=== PATIENT | male | born 1945 | race Caucasian/White ===

== ENCOUNTER → 2024-01-21 00:31 | Outpatient (CLI) | payer MEDICARE, SELFPAY ==
[2024-01-21 11:19] LABS: Abs Immature Grans 0.05 10^3/uL (0.0-0.06); Absolute Basophil Count 0.03 10^3/uL (0.0-0.2); Absolute Eosinophil Count 0.47 10^3/uL (0.0-0.7); Absolute Lymphocyte Count 1.75 10^3/uL (1.2-3.4); Absolute Monocyte Count 0.98 10^3/uL (0.1-0.8); Absolute Neutrophil Count 5.73 10^3/uL (1.2-6.7); Basophils % 0.3; Eosinophils % 5.2; HCT 40.6 % (40.0-50.0); HGB 13.4 g/dL (13.5-17.5); Immature Grans % 0.6; Lymphocytes % 19.4; MCH 33.1 pg (27.0-33.0); MCV 100 fL (80-95); MPV 8.7 fL (8.0-11.0); Monocytes % 10.9; Neutrophils % 63.6; Platelet Count 332 10^3/uL (130-400); RBC 4.05 10^6/uL (4.36-5.78); RDW 12.7 % (11.8-14.1); RDW-SD 46.8 fL; WBC 9.01 10^3/uL (4.4-10.8)
[2024-01-21 12:01] LABS: ALT 27 U/L (16-63); AST 36 U/L (15-37); Albumin 3.9 g/dL (3.4-5.0); Alkaline Phosphatase 162 U/L (46-116); Anion Gap 5.7 mmol/L (3-11); BUN 15 mg/dL (7-18); Bilirubin, Total 0.4 mg/dL (0.2-1.0); CO2 30.3 mmol/L (21.0-32.0); Calcium 9.4 mg/dL (8.5-10.1); Chloride 102 mmol/L (98-107); Estimated GFR 76.08 (mL/min/1.73m2); FREE T4 0.79 ng/dL (0.76-1.46); Glucose 94 mg/dL (74-106); LDH 305 U/L (85-227); Potassium 4.6 mmol/L (3.5-5.1); Sodium 138 mmol/L (136-145); TSH 3.52 uIU/Ml (0.36-3.74); Total Protein 7.4 g/dL (6.4-8.2)
[2024-01-21] MEDS: Gadoterate meglumine 20 ML SYRINGE IVP (13:13)
[2024-01-21] MEDS: Normal Saline Flush 10 ML SYR IVP (13:14)
--- NOTE | 2024-01-21 13:30 | DI.MRI_ITS ---
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 CONTRAST MATERIAL: IV Contrast: 13 ML of Dotarem contrast administered. MR SPINE ADULT from 05/06/2023 MR SPINE ADULT from 08/12/2023 FINDINGS: BONES: Vertebral body heights are maintained. Intervertebral disc spaces are normal. Alignment is nor mal. There are degenerative endplate signal changes seen at C6-C7. There again seen post laminectomy changes from C2 through C5. CERVICAL CORD: Craniovertebral junction is unremarkable. The cervical cord is normal size and signal intensity. No lesion is present. SOFT TISSUES: The previously seen fluid collection in the postsurgical bed posteriorly has nearly com pletely resolved. There does appear to be a tiny residual very thin fluid collection present. ENHANCEMENT: There is persistent very mild enhancement at the anterior lateral/right aspect of the sp inal cord at C3-C4. No new enhancing lesions are identified. C2-3: No disc herniation or bulge is identified. No significant central spinal canal or neural forami nal stenosis. C3-4: No disc herniation or bulge is identified. No significant central spinal canal or neural forami nal stenosis C4-5: No disc herniation or bulge is identified. No significant central spinal canal or neural forami nal stenosis C5-6: No disc herniation or bulge is identified. No significant central spinal canal or neural forami nal stenosis C6-7: There is again seen prominence of the osteophyte disc complex causing narrowing of the central spinal canal. The AP diameter is 6 mm. There is resultant flattening of the anterior aspect of the sp inal cord. There is normal signal in the spinal cord. Bilateral neural foraminal stenosis is present at this level. C7-T1: No disc herniation or bulge is identified. No significant central spinal canal or neural valentino inal stenosis IMPRESSION: 1. Stable mild enhancement at the anterior and right aspect of the spinal cord at C3-C4. No new enhan cing lesions are seen. 2. Stable central spinal canal and neural foraminal stenosis at C6-C7 due to the prominent osteophyte disc complex. 3. Near complete resolution of the fluid collection previously seen in the postsurgical bed status po st C2 through C5 laminectomy. DATA REPOSITORY:
== END ==
PROVIDERS: Nurse Practitioner; PCP Family Medicine; Visit Provider Neurological Surgery
DX: Z79.899 Other long term (current) drug therapy (principal); C43.4 Malignant melanoma of scalp and neck
CPT/HCPCS: 80053; 72156; 83615; 84439; 84443; 85025

== ENCOUNTER → 2024-01-25 03:09 | Outpatient (CLI) | payer MEDICARE, SELFPAY ==
--- NOTE | 2024-01-25 | DI.MRI_ITS ---
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 TECHNIQUE: Multiplanar multisequence MRI of the brain was performed. CONTRAST MATERIAL: IV Contrast: 13 ML of Dotarem contrast administered. FINDINGS: VENTRICLES AND EXTRA AXIAL SPACES: Normal in size and morphology for the patient's age. HEMORRHAGE: None. CEREBRAL PARENCHYMA: No focus of restricted diffusion to suggest acute infarct. Mild atrophy. Scatt ered white matter foci consistent with microvascular changes. No space-occupying lesion identified. MIDLINE SHIFT: None. BRAINSTEM/CEREBELLUM: Normal. CALVARIUM: Normal. ENHANCEMENT: No suspicious enhancement identified. VISUALIZED PARANASAL SINUSES/MASTOIDS: Small amount of mucous retention posterior left sphenoid sinus . Mild ethmoid mucosal thickening. Orbits: Unremarkable. Pituitary: Normal. Vasculature: Normal flow voids. IMPRESSION: No evidence of metastatic disease. DATA REPOSITORY:
[2024-01-25] MEDS: Normal Saline Flush 10 ML SYR IVP (10:11)
[2024-01-25] MEDS: Gadoterate meglumine 20 ML SYRINGE 13 ML IVP (10:12)
== END ==
PROVIDERS: PCP Family Medicine; Visit Provider Internal Medicine Hospice and Palliative Medicine
DX: C43.4 Malignant melanoma of scalp and neck (principal); G95.89 Other specified diseases of spinal cord
CPT/HCPCS: 70553

== ENCOUNTER → 2024-04-21 00:14 | Outpatient (CLI) | payer MEDICARE, SELFPAY ==
--- NOTE | 2024-04-21 | DI.MRI_ITS ---
Exam(s) MR ABDOMEN WO/W EXAM: MR ABDOMEN WO/W CLINICAL HISTORY: Metastases to liver, C78.7; secondary malignancy of soft tissue, C79.89 TECHNIQUE: Multiplanar multisequence MRI of the Abdomen was performed. CONTRAST MATERIAL: IV Contrast: 13 mL of Dotarem contrast administered. FINDINGS: Exam limited by motion. Liver: 2.8 centimeter by 3.4 centimeter high T1 signal lesion in the superior liver. Smaller high T1 signal lesion seen more laterally measuring 13 millimeters. Other smaller lesion seen in the inferi or right lobe. Pancreas: 3 centimeter mass seen near head of pancreas. Gallbladder and Bile Ducts: No biliary dilatation. Status post cholecystectomy. Adrenals: Unremarkable 6 centimeter mixed signal lesion of the left adrenal. There is significant hi gh signal on T1 weighted images small nodule left adrenal gland. Kidneys: No evidence of hydronephrosis. Small high T1 low T2 signal nodule at the posterior border o f left kidney seen to represent a partially calcified lesion on PET CT. Additional tiny nodule high T1 signal seen at the lower pole of the left kidney. Spleen: Unremarkable. Aorta: Unremarkable. Soft Tissues: 2.5 centimeter mass in the left paraspinal tissues at the L5 level. Bone: Abnormal expansile high signal lesion seen in right anterior rib at the upper images. Lymph Nodes: Unremarkable no enlarged lymph nodes are visible. Lung bases: No effusions. No ascites. No abnormal bowel distension. IMPRESSION: Limited exam due to motion. Metastatic lesions seen in right anterior rib, liver, both adrenal glands. There is a mass near the head of the pancreas of uncertain origin. Small lesions are seen on the left kidney which show high T1 signal in could also represent metastases. Mass in the posterior soft tissues at the right L5 level. DATA REPOSITORY:
[2024-04-21] MEDS: Normal Saline - Diluent 50 ML VIAL 20 ML IJ (10:43)
[2024-04-21] MEDS: Gadoterate meglumine 20 ML VIAL 13 ML IVP (10:43)
== END ==
PROVIDERS: PCP Family Medicine
DX: C79.89 Secondary malignant neoplasm of other specified sites (principal); C78.7 Secondary malignant neoplasm of liver and intrahepatic bile duct
CPT/HCPCS: 74183

== ENCOUNTER 2024-07-28 00:32 | Outpatient (CLI) | payer MEDICARE, SELFPAY ==
--- NOTE | 2024-07-28 | DI.MRI_ITS ---
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 CONTRAST MATERIAL: IV Contrast: 12 ML of Dotarem contrast administered. COMPARISON: MR MR CERVICAL SPINE WO/W from 01/21/2024 FINDINGS: BONES: Vertebral body heights are maintained. Intervertebral disc spaces are normal. There is straigh tening of the normal cervical lordosis. There is again seen a C2 through C5 laminectomy. Endplate o steophytes are seen at multiple levels of the cervical spine. Endplate degenerative signal changes a re seen at multiple levels of the cervical spine particularly at C6-C7. Bone marrow signal intensity is within normal limits. CERVICAL CORD: Craniovertebral junction is unremarkable. The cervical cord is normal size and signal intensity. No lesion is present. SOFT TISSUES: Unremarkable. ENHANCEMENT: There is been continued decrease in the enhancement adjacent to the anterior right aspec t of the spinal cord at the C3-4 level. No new or suspicious enhancement is seen. C2-3: No disc herniation or bulge is identified. No significant central spinal canal or neural forami nal stenosis. C3-4: No disc herniation or bulge is identified. No significant central spinal canal or neural forami nal stenosis C4-5: No disc herniation or bulge is identified. There are hypertrophic changes seen at the facets on the left. There is mild narrowing of the left neural foramen. No significant central spinal canal or right neural foraminal stenosis is seen. C5-6: No disc herniation or bulge is identified. Degenerative changes are present resulting in bilate ral narrowing of the neural foramen. No significant central spinal canal stenosis is present. C6-7: There is prominence of the osteophyte disc complex causing central spinal canal stenosis. Ther e is flattening of the spinal cord. The AP diameter is 7.1 mm. There is normal signal in the spinal cord. Bilateral neural foraminal stenosis is present. C7-T1: No disc herniation or bulge is identified. No significant central spinal canal or neural valentino inal stenosis IMPRESSION: 1. Continued decrease in the enhancement adjacent to the spinal cord at the C3-C4 level. 2. No new enhancing lesions are seen. 3. Multilevel degenerative changes in the cervical spine as described above. The findings are most m arked at the C6-C7 level where there is central spinal canal and neural foraminal stenosis. 4. Postsurgical changes of a C2 through C5 laminectomy. DATA REPOSITORY:
--- NOTE | 2024-07-28 | DI.MRI_ITS ---
Exam(s) MR BRAIN WO/W EXAM: MR BRAIN WO/W CLINICAL HISTORY: C SPINE TUMOR D49.2 H/O METASTATIC MELANOMA, SURVEILLENCE TECHNIQUE: Multiplanar multisequence MRI of the brain was performed. CONTRAST MATERIAL: IV Contrast: mL of Dotarem contrast administered. COMPARISON: MR MR BRAIN WO/W from 01/25/2024 FINDINGS: The examination is limited due to patient motion artifact. VENTRICLES AND EXTRA AXIAL SPACES: Normal in size and morphology for the patient's age. HEMORRHAGE: None. CEREBRAL PARENCHYMA: No focus of restricted diffusion to suggest acute infarct. No space-occupying le victoria identified. There are multiple foci of hyperintense signal seen in the white matter on the FLAIR and T2 weighted images consistent with chronic microvascular ischemic disease. MIDLINE SHIFT: None. BRAINSTEM/CEREBELLUM: Normal. CALVARIUM: Normal. ENHANCEMENT: No suspicious enhancement identified. VISUALIZED PARANASAL SINUSES/MASTOIDS: There is fluid seen in the right maxillary sinus. The remaini ng visualized paranasal sinuses are clear. There is some fluid seen in the left mastoid air cells. NENANA OF MEEKS: Normal flow void. PITUITARY GLAND: Unremarkable. OTHER FINDINGS: IMPRESSION: No intracranial mass or enhancing lesions to suggest metastatic disease. DATA REPOSITORY:
[2024-07-28] MEDS: Normal Saline Flush 10 ML SYR IVP (09:12)
[2024-07-28] MEDS: Gadoterate meglumine 20 ML SYRINGE 12 ML IVP (09:12)
== END 2024-07-28 00:52 ==
LOC: DI 00:32
PROVIDERS: PCP Family Medicine; Visit Provider Neurological Surgery
DX: M48.02 Spinal stenosis, cervical region (principal); D49.2 Neoplasm of unspecified behavior of bone, soft tissue, and skin
CPT/HCPCS: 70553; 72156

== ENCOUNTER 2025-03-09 10:34 | Emergency (ER) | payer MEDICARE, SELFPAY ==
[2025-03-09] VITALS (25 sets, daily range): BP systolic 146–176; BP diastolic 80–98; PULSE 64–82; RESP 13–25; TEMP 36.7; O2SAT 96–98
--- NOTE | 2025-03-09 11:11 | ED.GENADUL_ITS ---
Discharge Plan Disposition Patient Disposition: Home Discharge Details Clinical Impression: Abdominal mass, RUQ (right upper quadrant) Primary Care Provider: Phil Zamarripa ED Provider: Anne-Marie Yeung Home Meds and New Rx's Prescriptions: No Action Metamucil 3.4 gram/5.4 gram powder PO Patient Comments: Take it as needed ICaps AREDS2 250 mg-200 unit -12.5 mg-1 mg capsule PO aspirin 81 mg capsule 81 mg PO DAILY garlic [garlic oil] 1,000 mg capsule 2,000 mg PO DAILY multivitamin Tablet 1 tab PO DAILY ascorbic acid (vitamin C) [Vitamin C With Collette Hips] 500 mg tablet 500 mg PO DAILY cholecalciferol (vitamin D3) 250 mcg (10,000 unit) capsule 250 mcg PO DAILY phenobarbital 97.2 mg tablet 145.8 mg PO DAILY Qty: 45 5RF Discharge Instructions Additional Instructions: Please call your oncology team and your primary care provider first thing Wednesday morning to schedule follow-up appointments to discuss today's results. A referral has been made to palliative care to help you with symptomatic management associated with the diagnoses Please be sure to stay well-hydrated. Eat plenty of small meals throughout the day. Appetite is not as good as it should be. You may use Tylenol for discomfort as needed Return to emergency care if you develop new severe abdominal pain, uncontrollable vomiting, experience abdominal trauma, significant change in bowel or bladder function, or if you are very worried you need to be checked again immediately Referrals: [facility] [Provider Group] Discharge Data Discharge Date/Time-TO BE ENTERED AT DEPARTURE: 03/09/25 15:34 HPI General Date/Time Provider Initiated Documentation: 03/09/25 10:57 . HPI Narrative: Hal is a 79-year-old male who presents to the emergency department today for evaluation of right upper quadrant pain and for 3 days, rated a consistent 4/10, exacerbated by palpation. He reports that he finally came in today because he was getting tired of dealing with the pain. He has had a decreased appetite for the last few days since this started. Denies associated fever/chills, congestion, chest pain, shortness of breath, sore throat, cough, nausea/vomiting, unexpected weight loss, change in bowel or bladder function. Past surgical history significant for cholecystectomy and open abdominal surgery for evaluation of kidney during childhood. He does have with metastatic melanoma, currently being treated with chemotherapy (last treatment last week, denies leukopenia), no known metastasis to liver or kidneys. Related Data Home Medications ?Medication ?Instructions ?Recorded ?Confirmed ascorbic acid (vitamin C) 500 mg 500 mg PO DAILY 03/03/23 03/09/25 tablet (Vitamin C With Collette Hips) aspirin 81 mg capsule 81 mg PO DAILY 03/03/23 03/09/25 cholecalciferol (vitamin D3) 250 250 mcg PO DAILY 03/03/23 03/09/25 mcg (10,000 unit) capsule garlic 1,000 mg capsule (garlic 2,000 mg PO DAILY 03/03/23 03/09/25 oil) multivitamin 1 tab PO DAILY 03/03/23 03/09/25 psyllium husk 3.4 gram/5.4 gram PO To help with diaherra 04/04/24 04/04/24 oral powder (Metamucil) vit C 250 mg-vit E 200 unit-zinc cap PO Dry Macular Degeneration 04/04/24 04/04/24 ox 12.5 [id number] capsule (ICaps AREDS2) phenobarbital 97.2 mg tablet 145.8 mg (1.5 x 97.2 mg) PO DAILY 11/06/24 03/09/25 #45 tabs Previous Rx's ?Medication ?Instructions ?Recorded phenobarbital 97.2 mg tablet 145.8 mg (1.5 x 97.2 mg) PO DAILY 11/06/24 #45 tabs Allergies Allergy/AdvReac Type Severity Reaction Status Date / Time Penicillins Allergy Unknown Rash Unverified 03/09/25 10:41 General Stated Complaint: Abd Prob ABEBA: 3 Review of Systems Narrative: See HPI Exam Narrative Exam Narrative: General Appearance: Normal. Patient is alert and oriented, in no acute distress Vital signs: Hypertension noted with blood pressure 150/98, no tachycardia, tachypnea, fever, or hypoxia Respiratory: Easy work of breathing, lung sounds clear bilaterally Cardiovascular: Normal heart sounds, regular rate and rhythm Gastrointestinal: Firm tender mass in right upper quadrant. No abdominal rigidity or guarding. No overlying skin changes. Normoactive bowel sounds. Skin: Warm and dry, no rash. Psychiatric: Normal. Course Vital Signs Vital signs: Vital Signs Temperature 36.7 C 03/09/25 10:39 Pulse 81 03/09/25 10:39 Respiratory Rate 18 03/09/25 10:39 Blood Pressure 150/98 H 03/09/25 10:39 Pulse Oximetry 97 03/09/25 10:39 Temperature 36.7 C 03/09/25 10:42 Pulse 81 03/09/25 10:42 Respiratory Rate 18 03/09/25 10:42 Blood Pressure 150/98 H 03/09/25 10:42 Pulse Oximetry 97 03/09/25 10:42 Medical Decision Making Initial Assessment: 79-year-old male with persistent right upper quadrant pain for 3 days, rated 3-4/10 at rest, worse on palpation. No fever, chills, nausea, vomiting, or changes in bowel/bladder habits. Firm spot in right upper quadrant on exam. DDx includes but is not limited to: Neoplasm, hernia, lipoma, cholecystitis, hepatitis, pancreatitis, ED Course: - Blood work ordered - Urine sample ordered - Abdominal scan ordered Final Assessment: Persistent right upper quadrant pain with firm spot on exam, no associated systemic symptoms. Given history of metastatic melanoma and chemotherapy, further investigation warranted. I independently interpreted the following tests: CBC, CMP, lipase are reassuring. Mild hypomagnesemia, magnesium 1.7. UA unremarkable, not consistent with UTI. CT abdomen/pelvis performed. Cussed findings with Dr. Pisano, radiologist. There is a partially calcified mass in the right hepatic lobe as well as a large right adrenal neoplasm. Given the history of melanoma this is most likely metastatic disease. Clinical Impression: Abdominal mass, likely metastatic melanoma. Reviewed findings with patient and his . Recommend close follow-up with PCP and oncology team. I did discuss with palliative care, they are agreeable with referral to palliative care for symptom management. Disposition: -Discharge home with outpatient follow-up with specialists for further management/evaluation - Reviewed discharge instructions with patient and his , including symptomatic management, importance of follow-up, and red flags indicate need for return to emergency care MDM Components Evaluation: - Number of Differential Diagnoses or Management Options: Metastatic melanoma - Amount and Complexity of Data Reviewed: Blood work, urine sample, abdominal scan - Risk of Complication and Morbidity or Mortality: High due to history of metastatic melanoma and ongoing chemotherapy Patient consented to the use of [facility] Imaging Data Radiologic Study: Radiologist's impression: Exam(s) CT ABDOMEN PELVIS W EXAM: CT ABDOMEN PELVIS W CLINICAL HISTORY: RUQ pain w/mass, h/o metastatic CA. TECHNIQUE: Imaging Protocol: Axial computed tomography images with coronal and sagittal reformatted images were created and reviewed CONTRAST MATERIAL: Intravenous: Omnipaque-350 100cc Oral: None COMPARISON: CT,PT PET^[facility] [place] (Adult) from 03/30/2024 MR MR ABDOMEN WO/W from 04/21/2024 FINDINGS: VISUALIZED LUNG BASES: No nodules nor pleural effusions evident. ABDOMEN: There is a paucity of intraperitoneal and retroperitoneal fat. LIVER: There is a partially calcified mass in the right hepatic lobe again noted which measures 2.5 x 2.4 cm. Another smaller lesion measuring 7 mm is also seen in the liver. GALLBLADDER/BILIARY: There are surgical clips consistent with prior cholecystectomy. CBD diameter is mildly enlarged and there are mildly dilated intrahepatic ducts. There are masses in the barb hepatis region, exhibiting some calcification, similar to the lesion in the right hepatic lobe described above. This is adjacent to or exophytic off the lateral aspect of the pancreatic head. Another larger mass is seen in the region of the right adrenal gland which is peripherally calcified and centrally hypodense and measures 7 cm AP x 4.8 cm wide by 7.4 cm craniocaudal. It is peripherally calcified. Assuming that the gallbladder surgically absent (there are surgical clips in the gallbladder fossa and prior cholecystectomy has been mentioned on prior reports) then this would be a large right adrenal mass highly suspicious for neoplasm. PANCREAS: Partially calcified mass which appears to be in the pancreatic head adjacent to the CBD and has similar appearance to the partially calcified masses in the liver. Measures 2.6 x 2.5 cm. There is mild dilatation of the pancreatic duct. No other pancreatic masses evident elsewhere in the pancreas. SPLEEN: Spleen is not enlarged. No obvious intrasplenic lesions. Splenic and portal veins are patent. ADRENALS: The large 7 x 4.8 x 7.4 cm mass described above is most probably a right adrenal neoplasm. Smaller but similar appearing mass is noted in the opposite-left adrenal gland measuring 1.5 x 1.2 cm. KIDNEYS:No cysts evident. No solid renal masses. No calculi nor hydronephrosis.. ABDOMINAL AORTA: Abdominal aorta is not enlarged. LYMPH NODES:There is lymphadenopathy in the barb hepatis region and right retroperitoneum area. There is no para-aortic adenopathy below the left renal vein level. ABDOMINAL WALL: No evidence of significant anterior abdominal wall nor inguinal hernia. GI: Abundant fecal material throughout the colon but no obvious bowel obstruction, free air, nor abscess evident. PELVIS: GI: No evidence of appendicitis.No evidence of sigmoid diverticulitis. LYMPH NODES: There is no intrapelvic nor inguinal adenopathy. REPRODUCTIVE: Mildly enlarged prostate. URINARY BLADDER: Partially collapsed thus difficult to evaluate accurately. No obvious masses nor intraluminal calculi. OSSEOUS: No compression fractures evident. Chronic disc space narrowing L5-S1 level. Left hip hardware from intertrochanteric fracture repair. No obvious osseous lesions in the bones of the pelvis and lumbosacral spinal column. IMPRESSION: 1. Dominant 7 x 4.8 x 7.4 cm right upper quadrant mass which is most probably a large right adrenal neoplasm and there are other masses in this region as well as the barb hepatis and the lateral aspect of the pancreatic head. Also concerning masses in the liver and barb hepatis which are described above and are most probably metastatic. These findings were evident on prior MRI scan of April 2012. Slight further progression. Given the history of melanoma here this is probably all metastatic disease. 2. There surgical clips in the gallbladder fossa which are probably from prior cholecystectomy appears 3. No hydronephrosis. Quality:SDOH Health Related Social Needs: Health related social needs details none PFSH All Active Problems (Updated 03/09/25 @ 15:26 by Anne-Marie Madera) Abdominal mass, RUQ (right upper quadrant) (Acute) Abdominal pain (Acute) Anal discharge (Acute) Prurigo (Acute) BCC (basal cell carcinoma) (Acute) Stasis dermatitis (Acute) Seizures (Acute) Inflamed seborrheic keratosis (Acute) Actinic keratosis (Acute) Varicose veins of lower extremity (Acute) Secondary malignant neoplasm of bone (Acute ~08/08/21) Malignant neoplasm of skin (Acute) Malignant melanoma of skin (Acute) Medical History Closed fracture of hip (~01/24/20) 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, brain, bone Lung mass (~08/19/20) Multiple nodules of lung Right Side Immunotherapy Rosacea Anemia Anemia of chronic disease (~10/21/20) Surgical History Hx of arthroscopy of shoulder Hx of cholecystectomy (~05/05/07) Hx of cataract surgery (~02/08/18) 03/01/18 Hx of colonoscopy (~08/17/19) 02/04/09 History of Mohs surgery for squamous cell carcinoma of skin (~10/09/19) Malignant melanoma, left church History of hip surgery (~01/25/20) open reduction of fracture with internal fixation History of Mohs surgery for squamous cell carcinoma of skin (~05/09/20) Family History (Updated 04/06/24 @ 12:08 by Elif Campbell) Mother , 57 Heart disease Father , 96 Heart disease Skin cancer Sister No problems noted. Sister No problems noted. Sister , 53 Brain aneurysm Son No problems noted. Daughter No problems noted. Daughter No problems noted. Social History (Updated 04/06/24 @ 12:10 by Elif Campbell) Smoking/Tobacco Use Status: Never Second Hand Exposure: Yes Smoking risk assessment performed?: Yes Alcohol Intake: current Alcohol Intake frequency: 3 or more drinks per day Alcohol type: beer Drug use: Never Substance use type: does not use Adopted: No Caregiver/Support person: Yes Household members: significant other Housing: house Number of Children: 3 number of grandchildren: 12 Communication Needs: Hard of Hearing Education Level: high school Do you need help understanding health information?: Rarely current occupation: retired Pets and animals: No Sexually active: No Do you think of yourself as: straight/heterosexual Current gender identity: male What is your relationship status?: living with partner How often do you talk on the phone with friends or family?: three or more times per week How often do you get together with friends or relatives?: once per week How often do you attend christianity or lutheran services?: decline to answer Do you belong to any clubs or organized social groups?: decline to answer Panel score (0-1 are the most socially isolated patients): 2 What type of physical activity do you participate in: walking Duration: 15-30 minutes/day Frequency: daily Keyana/Protestant: Caodaism Special keyana needs: No Seatbelt use: always Drive intox or ride w/intox airport driver: No Firearms in home: Yes Firearms unloaded and locked: Yes Do you feel safe at home: Yes Do you feel safe in your relationship?: Yes Victim of physical abuse: No Victim of emotional abuse: No Would you like helpful sources: No PAWSS Have you Been Recently Intoxicated or Drunk Within the Last 30 days?: No Have you Ever Experienced Previous Episodes of Alcohol Withdrawal?: No Have you ever Experienced Withdrawal Seizures?: No Have you ever Experienced Delirium Tremens(DT)s?: No Have you ever undergone Alcohol Rehabilitation Treatment (i.e, inpt ot outpatient treatment programs)?: No Have you ever Experienced Blackouts?: No Have you ever Combined Alcohol with other Downers within the last 90 days?: No Have you ever Combined Alcohol with any other Substance of Abuse during the last 90 days?: No Positive Blood Alcohol level on Presentation? [PCS.BAL]: No Evidence of Increased Autonomic Activity (i.e. HR>120, tremor, sweating, agitation, nausea)?: No Result: 0
[2025-03-09 12:11] LABS: Abs Immature Grans 0.03 10^3/uL (0.0-0.06); Absolute Basophil Count 0.02 10^3/uL (0.0-0.2); Absolute Eosinophil Count 0.21 10^3/uL (0.0-0.7); Absolute Lymphocyte Count 1.02 10^3/uL (1.2-3.4); Absolute Monocyte Count 1.12 10^3/uL (0.1-0.8); Absolute Neutrophil Count 7.49 10^3/uL (1.2-6.7); Basophils % 0.2 %; Eosinophils % 2.1 %; HCT 33.7 % (40.0-50.0); HGB 10.5 g/dL (13.5-17.5); Immature Grans % 0.3 %; Lymphocytes % 10.3 %; MCH 27.2 pg (27.0-33.0); MCHC 31.2 % (32.0-36.0); MCV 87 fL (80-95); MPV 9.1 fL (8.0-11.0); Monocytes % 11.3 %; Neutrophils % 75.8 %; Platelet Count 344 10^3/uL (130-400); RBC 3.86 10^6/uL (4.36-5.78); WBC 9.89 10^3/uL (4.4-10.8)
[2025-03-09 12:31] LABS: Bilirubin Negative (Negative); Blood Negative (Negative); Clarity Clear (Clear); Glucose Negative (Negative); Ketones Negative (Negative); Leukocyte Esterase Negative (Negative); Nitrite Negative (Negative); Urobilinogen 0.2 mg/dL (Up to 0.2)
[2025-03-09 12:32] LABS: ALT 19 U/L (16-63); AST 29 U/L (15-37); Albumin 3.4 g/dL (3.4-5.0); Alkaline Phosphatase 128 U/L (46-116); Anion Gap 6.6 mmol/L (3-11); BUN 18 mg/dL (7-18); Bilirubin, Total 0.3 mg/dL (0.2-1.0); CO2 31.4 mmol/L (21.0-32.0); Calcium 9.6 mg/dL (8.5-10.1); Chloride 103 mmol/L (98-107); Estimated GFR 75.61 (mL/min/1.73m2); Glucose 109 mg/dL (74-106); Lipase 76 U/L (<78); Magnesium 1.7 mg/dL (1.8-2.4); Potassium 3.6 mmol/L (3.5-5.1); Sodium 141 mmol/L (136-145)
[2025-03-09] MEDS: Normal Saline - Diluent 50 ML VIAL IJ (13:07)
[2025-03-09] MEDS: Omnipaque 350 MG/ML 500 ML BTL-Imaging package 75 ML IJ (13:07)
--- NOTE | 2025-03-09 13:10 | DI.CT_ITS ---
Exam(s) CT ABDOMEN PELVIS W EXAM: CT ABDOMEN PELVIS W CLINICAL HISTORY: RUQ pain w/mass, h/o metastatic CA. TECHNIQUE: Imaging Protocol: Axial computed tomography images with coronal and sagittal reformatted images were created and reviewed CONTRAST MATERIAL: Intravenous: Omnipaque-350 100cc Oral: None MR MR ABDOMEN WO/W from 04/21/2024 FINDINGS: VISUALIZED LUNG BASES: No nodules nor pleural effusions evident. ABDOMEN: There is a paucity of intraperitoneal and retroperitoneal fat. LIVER: There is a partially calcified mass in the right hepatic lobe again noted which measures 2.5 x 2.4 cm. Another smaller lesion measuring 7 mm is also seen in the liver. GALLBLADDER/BILIARY: There are surgical clips consistent with prior cholecystectomy. CBD diameter is mildly enlarged and there are mildly dilated intrahepatic ducts. There are masses in the barb hepa tis region, exhibiting some calcification, similar to the lesion in the right hepatic lobe described above. This is adjacent to or exophytic off the lateral aspect of the pancreatic head. Another larg er mass is seen in the region of the right adrenal gland which is peripherally calcified and centrall y hypodense and measures 7 cm AP x 4.8 cm wide by 7.4 cm craniocaudal. It is peripherally calcified. Assuming that the gallbladder surgically absent (there are surgical clips in the gallbladder fossa and prior cholecystectomy has been mentioned on prior reports) then this would be a large right adren al mass highly suspicious for neoplasm. PANCREAS: Partially calcified mass which appears to be in the pancreatic head adjacent to the CBD and has similar appearance to the partially calcified masses in the liver. Measures 2.6 x 2.5 cm. Ther e is mild dilatation of the pancreatic duct. No other pancreatic masses evident elsewhere in the blackmon creas. SPLEEN: Spleen is not enlarged. No obvious intrasplenic lesions. Splenic and portal veins are paten t. ADRENALS: The large 7 x 4.8 x 7.4 cm mass described above is most probably a right adrenal neoplasm. Smaller but similar appearing mass is noted in the opposite-left adrenal gland measuring 1.5 x 1.2 c m. KIDNEYS:No cysts evident. No solid renal masses. No calculi nor hydronephrosis.. ABDOMINAL AORTA: Abdominal aorta is not enlarged. LYMPH NODES:There is lymphadenopathy in the barb hepatis region and right retroperitoneum area. The re is no para-aortic adenopathy below the left renal vein level. ABDOMINAL WALL: No evidence of significant anterior abdominal wall nor inguinal hernia. GI: Abundant fecal material throughout the colon but no obvious bowel obstruction, free air, nor absc ess evident. PELVIS: GI: No evidence of appendicitis.No evidence of sigmoid diverticulitis. LYMPH NODES: There is no intrapelvic nor inguinal adenopathy. REPRODUCTIVE: Mildly enlarged prostate. URINARY BLADDER: Partially collapsed thus difficult to evaluate accurately. No obvious masses nor in traluminal calculi. OSSEOUS: No compression fractures evident. Chronic disc space narrowing L5-S1 level. Left hip hardw are from intertrochanteric fracture repair. No obvious osseous lesions in the bones of the pelvis an d lumbosacral spinal column. IMPRESSION: 1. Dominant 7 x 4.8 x 7.4 cm right upper quadrant mass which is most probably a large right adrenal n eoplasm and there are other masses in this region as well as the barb hepatis and the lateral aspect of the pancreatic head. Also concerning masses in the liver and barb hepatis which are described a ariel and are most probably metastatic. These findings were evident on prior MRI scan of April 2012. Slight further progression. Given the history of melanoma here this is probably all metastatic disea se. 2. There surgical clips in the gallbladder fossa which are probably from prior cholecystectomy appear s 3. No hydronephrosis. Discussed by phone with ER provider 03/09/2025 at 1:45 p.m. RADIATION DOSE DELIVERED: 363.75mGy.cm Total DLP DATA REPOSITORY: All CT scans at this facility are submitted to the National Radiology Data Registry (NRDR) Dose Index Registry (DIR) with the [employer] (ACR). RADIATION OPTIMIZATION: All CT scans at this facility use at least one of these dose optimization te chniques: automated exposure control; mA and/or kV adjustment per patient size (includes targeted exa ms where dose is matched to clinical indication); or iterative reconstruction.
[2025-03-09] MEDS: Acetaminophen 325 MG TAB 650 MG PO (13:25)
== END 2025-03-09 15:34 | disposition home or self-care (01) ==
PROVIDERS: Emergency Provider Nurse Practitioner Family; PCP Family Medicine
DX: R19.01 Right upper quadrant abdominal swelling, mass and lump (principal); C43.9 Malignant melanoma of skin, unspecified; C78.7 Secondary malignant neoplasm of liver and intrahepatic bile duct; C79.51 Secondary malignant neoplasm of bone; Z90.49 Acquired absence of other specified parts of digestive tract; Z92.21 Personal history of antineoplastic chemotherapy
CPT/HCPCS: 36415; 80053; 83690; 99285; 74177; 81003; 83735; 85025; 99284

== ENCOUNTER 2025-06-27 05:22 | Emergency (ER) | payer MEDICARE, SELFPAY ==
[2025-06-27 05:27] VITALS: BP 157/94; PULSE 85; RESP 18; TEMP 36.8; O2SAT 97
--- NOTE | 2025-06-27 05:32 | W.ED.GENAD ---
Discharge Plan Disposition Patient Disposition: Transfer-Acute Inpatient Care Specific Acute Inpt Facility: [facility] Condition: Stable Discharge Details Clinical Impression: Bleeding of eye Primary Care Provider: Phil Zamarripa ED Provider: Edenilson Esposito [facility] [place] Rx's Prescriptions: No Action Metamucil 3.4 gram/5.4 gram powder PO Patient Comments: Take it as needed ICaps AREDS2 250 mg-200 unit -12.5 mg-1 mg capsule PO aspirin 81 mg capsule 81 mg PO DAILY garlic [garlic oil] 1,000 mg capsule 2,000 mg PO DAILY multivitamin Tablet 1 tab PO DAILY ascorbic acid (vitamin C) [Vitamin C With Collette Hips] 500 mg tablet 500 mg PO DAILY cholecalciferol (vitamin D3) 250 mcg (10,000 unit) capsule 250 mcg PO DAILY phenobarbital 97.2 mg tablet 145.8 mg PO DAILY Qty: 45 5RF HPI General Mode of arrival: ambulatory. Date/Time Provider Initiated Documentation: 06/27/25 05:32. Limitations to Documentation: no limitations. Information obtained by: patient and RN notes reviewed. HPI Narrative: Patient presents to ED with spontaneous bleeding from his right eye. Patient woke up and thought he was just tearing went to the bathroom and realized it was all blood. Denies having any type of pain. Denies any known trauma. Reports decreased vision at this time but cannot tell whether it is because of all the blood. This is actually his good eye as he has macular degeneration in both eyes. He takes an aspirin a day but is otherwise not on anticoagulation. Denies issues like this previously. Related Data Home Medications ?Medication ?Instructions ?Recorded ?Confirmed ascorbic acid (vitamin C) 500 mg 500 mg PO DAILY 03/03/23 06/27/25 tablet (Vitamin C With Collette Hips) aspirin 81 mg capsule 81 mg PO DAILY 03/03/23 06/27/25 cholecalciferol (vitamin D3) 250 250 mcg PO DAILY 03/03/23 06/27/25 mcg (10,000 unit) capsule garlic 1,000 mg capsule (garlic 2,000 mg PO DAILY 03/03/23 06/27/25 oil) multivitamin 1 tab PO DAILY 03/03/23 06/27/25 psyllium husk 3.4 gram/5.4 gram PO To help with diaherra 04/04/24 04/12/25 oral powder (Metamucil) vit C 250 mg-vit E 200 unit-zinc cap PO Dry Macular Degeneration 04/04/24 04/12/25 ox 12.5 ip-dhusem-ciuxjn-zeax capsule (ICaps AREDS2) phenobarbital 97.2 mg tablet 145.8 mg (1.5 x 97.2 mg) PO DAILY 05/09/25 06/27/25 #45 tabs Previous Rx's ?Medication ?Instructions ?Recorded phenobarbital 97.2 mg tablet 145.8 mg (1.5 x 97.2 mg) PO DAILY 05/09/25 #45 tabs Allergies Allergy/AdvReac Type Severity Reaction Status Date / Time Penicillins Allergy Unknown Rash Unverified 03/13/25 13:23 General Stated Complaint: EyeProblem ABEBA: 2 Exam Narrative Exam Narrative: Const: WDWN elderly male in NAD. VS per triage. HEENT: NC/AT. Normal facial exam. Eyes: Pupils small and minimally reactive bilaterally. No obvious laceration of injury to lids. EOMI. Bleeding appears to be coming from the inferior/medial corner of the eye. Neck: Supple. Trachea midline. Lungs: Normal respiratory effort. Neuro: A+O x 3. Normal speech, mentation, gait. Cranial nerves II - XII grossly intact. No gross motor or sensory deficit. Course Vital Signs Vital signs: Vital Signs Temperature 98.2 F 06/27/25 05:27 Pulse 85 06/27/25 05:27 Respiratory Rate 18 06/27/25 05:27 Blood Pressure 157/94 H 06/27/25 05:27 Pulse Oximetry 97 06/27/25 05:27 Temperature 98.2 F 06/27/25 05:27 Temperature Source Tympanic 06/27/25 05:27 Pulse 85 06/27/25 05:27 Respiratory Rate 18 06/27/25 05:27 Blood Pressure 157/94 H 06/27/25 05:27 Blood Pressure Position Sitting 06/27/25 05:27 Pulse Oximetry 97 06/27/25 05:27 Oxygen Delivery Method Room Air 06/27/25 05:27 Oxygen Flow Rate 0 06/27/25 05:27 Pain Level 0 06/27/25 05:27 Medical Decision Making Patient presenting with spontaneous bleeding from his right eye. There is a very large clot that was present when we removed the gauze that he had been using to control the bleeding. He reports not being able to see my face as I am standing in front of him. The lids appear intact. He does not have epistaxis. Difficult to clearly see exactly where he is bleeding from. He is not anticoagulated. His vital signs are normal. Will place an IV check basic labs and call placed to [facility] to speak to ophthalmology. On reevaluation after he had been holding pressure for some time bleeding seems to have slowed some. There appears to be flesh-colored tissue present on the sclera inferior and medial. Significant other reports that she noticed this a couple of weeks ago as she puts his eyedrops in every day for him. She had not noticed it before. Discussed with ophthalmology at [facility]. Recommend placing 1 drop of phenylephrine ophthalmologic drops in the right eye and place a pressure patch to control bleeding. He will be transferred to the ED at [facility], excepted by Dr. Webb. Patient is stable and significant other is comfortable with driving him down. IV is wrapped in Coban for protection. Patient's hemoglobin is 11.7. Platelet count normal at 287. Coags are normal. BMP unremarkable. Lab Data Lab results reviewed: Yes I reviewed the patient's lab results. 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, brain, bone Lung mass (~08/19/20) Multiple nodules of lung Right Side Immunotherapy Rosacea Anemia Anemia of chronic disease (~07/31/20) Surgical History Hx of arthroscopy of shoulder Hx of cholecystectomy (~05/05/07) Hx of cataract surgery (~02/08/18) 03/01/18 Hx of colonoscopy (~08/17/19) 02/04/09 History of Mohs surgery for squamous cell carcinoma of skin (~10/09/19) Malignant melanoma, left shinto History of hip surgery (~01/25/20) open reduction of fracture with internal fixation History of Mohs surgery for squamous cell carcinoma of skin (~05/09/20) Family History (Updated 04/06/24 @ 12:08 by Elif Campbell) Mother , 57 Heart disease Father , 96 Heart disease Skin cancer Sister No problems noted. Sister No problems noted. Sister , 53 Brain aneurysm Son No problems noted. Daughter No problems noted. Daughter No problems noted. Social History Smoking/Tobacco Use Status: Never Second Hand Exposure: Yes Smoking risk assessment performed?: Yes Alcohol Intake: current Alcohol Intake frequency: 3 or more drinks per day Alcohol type: beer Drug use: Never Substance use type: does not use Counseling given: No Adopted: No Caregiver/Support person: Yes Household members: significant other Housing: house Number of Children: 3 number of grandchildren: 12 Communication Needs: Hard of Hearing Education Level: high school Do you need help understanding health information?: Rarely current occupation: retired Pets and animals: No Sexually active: No Do you think of yourself as: straight/heterosexual Current gender identity: male What is your relationship status?: living with partner How often do you talk on the phone with friends or family?: three or more times per week How often do you get together with friends or relatives?: once per week How often do you attend baptist or shinto services?: decline to answer Do you belong to any clubs or organized social groups?: decline to answer Panel score (0-1 are the most socially isolated patients): 2 What type of physical activity do you participate in: walking Duration: 15-30 minutes/day Frequency: daily Keyana/Gnosticist: Yarsanism Special keyana needs: No Seatbelt use: always Drive intox or ride w/intox route sales delivery driver: No Firearms in home: Yes Firearms unloaded and locked: Yes Do you feel safe at home: Yes Do you feel safe in your relationship?: Yes Victim of physical abuse: No Victim of emotional abuse: No Would you like helpful sources: No
[2025-06-27 05:54] LABS: Abs Immature Grans 0.03 10^3/uL (0.0-0.06); HCT 36.4 % (40.0-50.0); HGB 11.7 g/dL (13.5-17.5); Immature Grans % 0.3 %; MCH 30.1 pg (27.0-33.0); MCHC 32.1 % (32.0-36.0); MCV 94 fL (80-95); MPV 9.0 fL (8.0-11.0); Platelet Count 287 10^3/uL (130-400); RBC 3.89 10^6/uL (4.36-5.78); RDW 15.8 % (11.8-14.1); RDW-SD 54.3 fL; WBC 8.73 10^3/uL (4.4-10.8)
[2025-06-27 06:03] LABS: Anion Gap 8.1 mmol/L (3-11); BUN 24 mg/dL (7-18); CO2 27.9 mmol/L (21.0-32.0); Calcium 9.4 mg/dL (8.5-10.1); Chloride 107 mmol/L (98-107); Estimated GFR 75.61 (mL/min/1.73m2); Glucose 94 mg/dL (74-106); Potassium 4.2 mmol/L (3.5-5.1); Sodium 143 mmol/L (136-145)
[2025-06-27 06:18] LABS: INR 1.0 (0.9-1.1); PTT Activated 23.4 sec (20.6-30.2); Prothrombin Time 9.9 sec (9.1-11.1)
== END 2025-06-27 07:17 | disposition short-term general hospital (02) ==
PROVIDERS: Emergency Provider Emergency Medicine; PCP Family Medicine
DX: H57.89 Other specified disorders of eye and adnexa (principal); C43.9 Malignant melanoma of skin, unspecified; C78.7 Secondary malignant neoplasm of liver and intrahepatic bile duct; C78.01 Secondary malignant neoplasm of right lung; C79.51 Secondary malignant neoplasm of bone; C79.31 Secondary malignant neoplasm of brain; Z79.82 Long term (current) use of aspirin
CPT/HCPCS: 80048; 99285; 85025; 85610; 85730; 99284

== ENCOUNTER → 2025-07-10 10:57 | Outpatient (BNVA) | payer MEDICARE, SELFPAY | PROVIDERS: PCP Family Medicine; Referring Provider Family Medicine; Visit Provider Student in an Organized Health Care Education/Training Program | DX: R13.10 Dysphagia, unspecified (principal) | CPT/HCPCS: 99213 ==